=== PATIENT | male | born 2000 | race Caucasian/White ===

== ENCOUNTER 2022-08-07 17:41 | Emergency (ER) | payer OTHER ==
--- OUTSIDE RECORDS SUMMARY | 2022-08-07 17:48 | XMS REPORT | Continuity of Care Document ---
:2000 Author Organization [facility] t Address [address] [facility] [address] [place] [address] Care Team Providers Name Role Phone Wellington Ferraro MD Primary Care Physician MD GABRIELLE Attending Clinician Unavailable CK, TECH [address] Un[address], TECH 1 Attending Clinician Unavailable WELLINGTON FERRARO Attending Clinician Unavailable COVID-PFIZER VACC, CLEAR CHOWDHURY Attending Clinician UnavailYUN Lino Attending Clinician Unavailable Yun Mendosa DO Attending Clinician MALIAN FREEMAN Attending Clinician Unavailable Malina Lewis Attending Clinician Doctor Unassigned, [place] Attending Clinician Unavailable JAGRUTI BUSTOS Attending Clinician Unavailable AD MCKAY Attending Clinician Unavailable [id number] Attending Clinician Unavailable Jagruti Bustos MD Attending Clinician [phone] Azeb Mott MD Attending Clinician Unknown, Attending Attending Clinician Unavailable Payers Payer Name Policy Type Policy Number Effective Date Expiration Date Jeovanny enamorado [place] [id number] 2018 00:00:00 WEIKERT 2019 CIGGRETA WITH MIKAELA [id number] 2020 00:00:00 SEYBOLD Problems Condition Condition Condition Status Onset Resolution Last Treating Co mments Source Name Details Category Date Date Treatment Clinician Date Ingrown Ingrown Disease Active Mikaela toenail of toenail of 06-16 Se ybold left foot left foot 00:00: - 00 Externa l Allergic Allergic Disease Active Overview: Un bo rhinitis rhinitis 12-23 Formattin ity of 00:00: g of this 00 note Medical might be Branch different from the original. 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 Obesity Obesity Disease Active Univers 12-23 ity of 00:00: [place] 00 Medical Branch No known No known Disease Kelse y active active Seybold problems problems Allergies, Adverse Reactions, Alerts Allergy Allergy Status Severity Reaction(s) Onset Inactive Treating Comm ents Source Name Type Date Date Clinician Penicill Propensi Active Hives Mikaela ins ty to 3-30 Seybold adverse 00:00: - reaction 00 Externa s l Penicill Propensi Active Hives Mikaela ins ty to 3-30 Seybold adverse 00:00: reaction 00 s PENICILL Drug Active Hives Univers INS Class 3-30 ity of 00:00: [place] 00 Medical Branch Penicill Propensi Active Hives Univer s ins ty to 3-30 ity of adverse 00:00: [place] reaction 00 Medical s Branch Social History Social Habit Start Date Stop Date Quantity Comments Source History SDOH Mikaela Morales ld - Alcohol Std External Drinks History SDOH Mikaela Mirzao ld - Alcohol Binge External History [facility] Mikaela Morales ld - Alcohol Comment External Alcohol intake 2022-01-29 2022-01-29 Lifetime Mikaela Saenz bold - 00:00:00 00:00:00 non-drinker External (finding) Education 2021-06-16 2021-06-16 12 Mikaela Mirzaold - 00:00:00 00:00:00 External Tobacco use and 2018-08-03 2018-08-03 Smokeless tobacco Ke chace Seybold - exposure 00:00:00 00:00:00 non-user External History SDOH 2018-08-03 2018-08-03 1 Mikaela Morales ld - Alcohol Frequency 00:00:00 00:00:00 Externa l Sex Assigned At [birth year] Universit y of 00:00:00 00:00:00 [facility] Smoking Status Start Date Stop Date Source Never smoked tobacco Mikaela Seyb old - External Medications Ordered Filled Start Stop Current Ordering Indication Dosage Frequency Signature Comments Components Source Medication Medication Date Date Medication? Clinician (SIG) Name Name Cetirizine 2021-03- No [id number] Take by Mikaela HCl 10 MG 03-31 mouth Seybold oral Cap 15:40: 00:00 - 36 :00 Externa l Omeprazole 2021-03 Yes [id number] 20mg QD Take 1 Mikaela 20 MG oral 03-31 capsule Seybol d Delayed 00:00: (20 mg - Release 00 total) by Externa Capsule mouth l daily as needed (acid reflux) KETOCONAZOL 2021-03 Yes [id number] Apply to Mikaela E, TOPICAL, 03-31 affected Seyb old 2 % apply 00:00: area twice - externally 00 weekly for Ext darrick Shampoo up to 8 l weeks Desonide 2021-03- No [id number] Q.5D Apply 1 K elsey 0.05 % 03-31 applicatio Seybol d apply 00:00: 05:59 n - externally 00 :00 topically Exte rna Cream 2 times l daily as needed (itchiness /dryness for up to 14 days.) for up to 14 days Cetirizine Yes [id number] Take by Mikaela HCl 10 MG 06-16 mouth Seybold oral Cap 10:10: 38 Doxycycline 2021- No [id number] 100mg Take 1 Mikaela Hyclate 100 06-16 [id number] capsule Se ybold MG oral 00:00: 04:59 (100 mg Capsule 00 :00 total) by mouth in the morning and 1 capsule (100 mg total) in the evening. Do all this for 7 days. sulfamethox 2020-03- No [id number] 1{tbl} Take 1 Univers azole-trime 05-16 [id number] tablet by ity of thoprim 00:00: 05:59 mouth 2 [place] (BACTRIM 00 :00 (two) Medical DS) 800-160 times Branch mg per daily for tablet 7 days. Esomeprazol 2020- No 1{tbl} Take 1 K elsey e Magnesium 12-05 tablet by Se campo (NexIUM) 10 17:39: 00:00 mouth as MG oral 29 :00 needed Pack Cetirizine Yes [id number] Take by Mikaela HCl 10 MG 12-05 mouth Seybold oral Cap 10:39: 10 Albuterol 2020- No 2{puff} Q4H Inhale 2 Mikaela HFA (PROAIR 3-30 12-05 puffs into S eybold HFA) 108 00:00: 00:00 the lungs (90 Base) 00 :00 every 4 MCG/ACT IN hours as AERS needed for wheezing or shortness of breath mometasone 2013-0 Yes 1{spray Use 1 Uni vers (NASONEX) 7-14 } [place] in ity of 50 00:00: each [place] mcg/actuati 00 nostril Medic al on nasal daily. Branch spray mometasone 2013-0 Yes 1{spray Use 1 Uni vers (NASONEX) 7-14 } [place] in ity of 50 00:00: each [place] mcg/actuati 00 nostril Medic al on nasal daily. Branch spray mometasone 2013-0 Yes 1{spray Use 1 Uni vers (NASONEX) 7-14 } [place] in ity of 50 00:00: each [place] mcg/actuati 00 nostril Medic al on nasal daily. Branch spray mometasone 2013-0 Yes 1{spray Use 1 Uni vers (NASONEX) 7-14 } [place] in ity of 50 00:00: each [place] mcg/actuati 00 nostril Medic al on nasal daily. Branch spray mometasone 2013-0 Yes 1{spray Use 1 Uni vers (NASONEX) 7-14 } [place] in ity of 50 00:00: each [place] mcg/actuati 00 nostril Medic al on nasal daily. Branch spray Immunizations Ordered Immunization Filled Date Status Comments Sour ce Name Immunization Name Influenza Virus 2022-01-29 Completed Mikaela campo - Vaccine, age 6 months 00:00:00 Ext ernal and up COVID-19 Bivalent 2022-01-29 Completed Mikaela [place] - Booster vaccine PFIZER 00:00:00 Ex ternal 12+ Meningococcal Vaccine- 2018-08-03 Completed Ke lsey Seybold - Conjugate(Menactra) 00:00:00 Exter nal Meningococcal Vaccine- 2018-08-03 Completed Ke lsey Seybold Conjugate(Menactra) 00:00:00 Meningococcal Vaccine- 2018-08-03 Completed Ke lsey Seybold Conjugate(Menactra) 00:00:00 HPV 4 (Human 2013-10-09 Completed Mikaela Seybo ld - Papillomavirus) 00:00:00 External HPV 4 (Human 2013-10-09 Completed Mikaela Seybo ld Papillomavirus) 00:00:00 HPV 4 (Human 2013-10-09 Completed Mikaela Seybo ld Papillomavirus) 00:00:00 HPV 2013-10-09 Completed University of 00:00:00 [facility] HPV 2013-10-09 Completed University of 00:00:00 [facility] HPV 2013-10-09 Completed University of 00:00:00 [facility] HPV 2013-10-09 Completed University of 00:00:00 [facility] HPV 2013-10-09 Completed University of 00:00:00 [facility] HPV 4 (Human 2013-05-29 Completed Mikaela Seybo ld - Papillomavirus) 00:00:00 External HPV 4 (Human 2013-05-29 Completed Mikaela Seybo ld Papillomavirus) 00:00:00 HPV 4 (Human 2013-05-29 Completed Mikaela Seybo ld Papillomavirus) 00:00:00 HPV 2013-05-29 Completed University of 00:00:00 [facility] HPV 2013-05-29 Completed University of 00:00:00 [facility] HPV 2013-05-29 Completed University of 00:00:00 [facility] HPV 2013-05-29 Completed University of 00:00:00 [facility] HPV 2013-05-29 Completed University of 00:00:00 [facility] Influenza, Seasonal, 2013-03-24 Completed Jaquelin bell Seybold Injectable 00:00:00 Tdap- (Boostrix, 2013-03-24 Completed Mikaela william Adacel) 00:00:00 Meningococcal Vaccine- 2013-03-24 Completed Ke lsey Seybold Conjugate(Menveo) 00:00:00 HPV 4 (Human 2013-03-24 Completed Mikaela Morales ld - Papillomavirus) 00:00:00 External Influenza, Seasonal, 2013-03-24 Completed Jaquelin ey Seybold - Injectable 00:00:00 External Tdap- (Boostrix, 2013-03-24 Completed Mikaela bellbold - Adacel) 00:00:00 External Meningococcal Vaccine- 2013-03-24 Completed Ke lsey Seybold - Conjugate(Menveo) 00:00:00 Externa l HPV 4 (Human 2013-03-24 Completed Mikaela Morales ld Papillomavirus) 00:00:00 Influenza, Seasonal, 2013-03-24 Completed Jaquelin ey Seybold Injectable 00:00:00 Tdap- (Boostrix, 2013-03-24 Completed Mikaela bellbold Adacel) 00:00:00 Influenza Virus 2013-03-24 Completed Universit y of Vaccine (3+ yrs) 00:00:00 [facility] Meningococcal Vaccine- 2013-03-24 Completed Ke lsey Seybold Conjugate(Menveo) 00:00:00 Meningococcal 2013-03-24 Completed University of Oligosaccharide 00:00:00 [place] Med ical (groups A, C, Y and Branc h W-135) conjugate vaccine (MCV4O) HPV 4 (Human 2013-03-24 Completed Mikaela Morales ld Papillomavirus) 00:00:00 Tdap 2013-03-24 Completed University of 00:00:00 [facility] HPV 2013-03-24 Completed University of 00:00:00 [facility] Influenza Virus 2013-03-24 Completed Universit y of Vaccine (3+ yrs) 00:00:00 [facility] Meningococcal 2013-03-24 Completed University of Oligosaccharide 00:00:00 [place] Med ical (groups A, C, Y and Branc h W-135) conjugate vaccine (MCV4O) TDAP 2013-03-24 Completed University of 00:00:00 [facility] HPV 2013-03-24 Completed University of 00:00:00 [facility] Influenza Virus 2013-03-24 Completed Universit y of Vaccine (3+ yrs) 00:00:00 [facility] Meningococcal 2013-03-24 Completed University of Oligosaccharide 00:00:00 [place] Med ical (groups A, C, Y and Branc h W-135) conjugate vaccine (MCV4O) TDAP 2013-03-24 Completed University of 00:00:00 [facility] HPV 2013-03-24 Completed University of 00:00:00 [facility] Influenza Virus 2013-03-24 Completed Universit y of Vaccine (3+ yrs) 00:00:00 [facility] Meningococcal 2013-03-24 Completed University of Oligosaccharide 00:00:00 [place] [facility] ical (groups A, C, Y and Branc h W-135) conjugate vaccine (MCV4O) Tdap 2013-03-24 Completed University of 00:00:00 [facility] HPV 2013-03-24 Completed University of 00:00:00 [facility] Influenza Virus 2013-03-24 Completed Universit y of Vaccine (3+ yrs) 00:00:00 [facility] Meningococcal 2013-03-24 Completed University of Oligosaccharide 00:00:00 [place] Med ical (groups A, C, Y and Branc h W-135) conjugate vaccine (MCV4O) Tdap 2013-03-24 Completed University of 00:00:00 [facility] HPV 2013-03-24 Completed University of 00:00:00 [facility] HEPATITIS A- PEDI/ADOL 2007-10-31 Completed Alexander mas Seybverito - 00:00:00 External HEPATITIS A- PEDI/ADOL 2007-10-31 Completed Alexander kingey Seybold 00:00:00 HEPATITIS A- PEDI/ADOL 2007-10-31 Completed Alexander kingey Seybold 00:00:00 HEPATITIS A 2007-10-31 Completed University of 00:00:00 [facility] HEPATITIS A 2007-10-31 Completed University of 00:00:00 [facility] HEPATITIS A 2007-10-31 Completed University of 00:00:00 [facility] HEPATITIS A 2007-10-31 Completed University of 00:00:00 [facility] HEPATITIS A 2007-10-31 Completed University of 00:00:00 [facility] MMR- Measles, Mumps, 2006-06-08 Completed Ja[place]elin [place] Rubella 00:00:00 Polio Vaccine 2006-06-08 Completed Mikaela sellers 00:00:00 Varicella Vaccine 2006-06-08 Completed Mikaela Park 00:00:00 DTaP Unspecified 2006-06-08 Completed Mikaela william 00:00:00 IPV- Inactivated Polio 2006-06-08 Completed [place] Vaccine 00:00:00 DTaP 2006-06-08 Completed Mikaela Seybold - 00:00:00 External MMR- Measles, Mumps, 2006-06-08 Completed Jaquelin bell Seybold - Rubella 00:00:00 External Polio Vaccine 2006-06-08 Completed Mikaela Seyb old - 00:00:00 External Varicella Vaccine 2006-06-08 Completed Mikaela Seybold - 00:00:00 External DTaP Unspecified 2006-06-08 Completed Mikaela bellbold - 00:00:00 External IPV- Inactivated Polio 2006-06-08 Completed Alexander mas Seybold - Vaccine 00:00:00 External DTaP 2006-06-08 Completed Mikaela Seybold 00:00:00 MMR- Measles, Mumps, 2006-06-08 Completed Jaquelin bell Seybold Rubella 00:00:00 Polio Vaccine 2006-06-08 Completed Mikaela Seyb old 00:00:00 Varicella Vaccine 2006-06-08 Completed Mikaela Seybold 00:00:00 DTaP 2006-06-08 Completed Mikaela Seybold 00:00:00 MMR 2006-06-08 Completed University of 00:00:00 [facility] Polio (IPV/OPV) 2006-06-08 Completed Universit y of 00:00:00 [facility] Varicella 2006-06-08 Completed University of (varivax)(chicken pox) 00:00:00 [facility] DTAP 2006-06-08 Completed University of 00:00:00 [facility] MMR 2006-06-08 Completed University of 00:00:00 [facility] DTAP 2006-06-08 Completed University of 00:00:00 [facility] Polio (IPV/OPV) 2006-06-08 Completed Universit y of 00:00:00 [facility] Varicella 2006-06-08 Completed University of (varivax)(chicken pox) 00:00:00 [facility] DTAP 2006-06-08 Completed University of 00:00:00 [facility] MMR 2006-06-08 Completed University of 00:00:00 [facility] Polio (IPV/OPV) 2006-06-08 Completed Universit y of 00:00:00 [facility] Varicella 2006-06-08 Completed University of (varivax)(chicken pox) 00:00:00 [facility] MMR 2006-06-08 Completed University of 00:00:00 [facility] Polio (IPV/OPV) 2006-06-08 Completed Universit y of 00:00:00 [facility] Varicella 2006-06-08 Completed University of (varivax)(chicken pox) 00:00:00 [facility] DTAP 2006-06-08 Completed University of 00:00:00 [facility] MMR 2006-06-08 Completed University of 00:00:00 [facility] Polio (IPV/OPV) 2006-06-08 Completed Universit y of 00:00:00 [facility] Varicella 2006-06-08 Completed University of (varivax)(chicken pox) 00:00:00 [facility] DTAP 2006-06-08 Completed University of 00:00:00 [facility] Pneumococcal Vaccine, 2004-11-13 Completed Devon saenz Seybverito Conjugate 7 00:00:00 DTaP Unspecified 2004-11-13 Completed Mikaela bellbowali 00:00:00 Hib (HbOC) 2004-11-13 Completed Mikaela Hernandezybverito 00:00:00 HEPATITIS A- PEDI/ADOL 2004-11-13 Completed Alexander mas Seybold 00:00:00 DTaP 2004-11-13 Completed Mikaela Hernandezybold - 00:00:00 External Pneumococcal Vaccine, 2004-11-13 Completed [place] - Conjugate 7 00:00:00 External DTaP Unspecified 2004-11-13 Completed Mikaela bellbold - 00:00:00 External Hib (HbOC) 2004-11-13 Completed Mikaela Hernandezybold - 00:00:00 External HEPATITIS A- PEDI/ADOL 2004-11-13 Completed Alexander kingey Seybold - 00:00:00 External DTaP 2004-11-13 Completed Mikaela Seybverito 00:00:00 Pneumococcal Vaccine, 2004-11-13 Completed Devon saenz Seybverito Conjugate 7 00:00:00 DTaP 2004-11-13 Completed Mikaela Seybold 00:00:00 Pneumococcal 7 2004-11-13 Completed Cedric of Conjugate, PCV7 00:00:00 [facility] ical (Prevnar7) Branch DTAP 2004-11-13 Completed University of 00:00:00 [facility] DTAP 2004-11-13 Completed University of 00:00:00 [facility] Pneumococcal 7 2004-11-13 Completed University of Conjugate, PCV7 00:00:00 [place] [facility] (Prevnar7) Branch DTAP 2004-11-13 Completed University of 00:00:00 [facility] Pneumococcal 7 2004-11-13 Completed University of Conjugate, PCV7 00:00:00 [place] [facility] ical (Prevnar7) Branch Pneumococcal 7 2004-11-13 Completed University of Conjugate, PCV7 00:00:00 [place] [facility] ical (Prevnar7) Branch DTAP 2004-11-13 Completed University of 00:00:00 [facility] Pneumococcal 7 2004-11-13 Completed University of Conjugate, PCV7 00:00:00 [place] [facility] ical (Prevnar7) Branch DTAP 2004-11-13 Completed University of 00:00:00 [facility] Tetanus Toxoid/HIB 2004-11-10 Completed Mikaela Park - 00:00:00 External Tetanus Toxoid/HIB 2004-11-10 Completed Mikaela [place] 00:00:00 Tetanus Toxoid/HIB 2004-11-10 Completed Mikaela [place] 00:00:00 HIB 4 Dose Schedule 2004-11-10 Completed Unive rsity of 00:00:00 [facility] HIB 4 Dose Schedule 2004-11-10 Completed Unive rsity of 00:00:00 [facility] HIB 4 Dose Schedule 2004-11-10 Completed Unive rsity of 00:00:00 [facility] HIB 4 Dose Schedule 2004-11-10 Completed Unive rsity of 00:00:00 [facility] HIB 4 Dose Schedule 2004-11-10 Completed Unive rsity of 00:00:00 [facility] HEPATITIS A- PEDI/ADOL 2004-11-03 Completed [place] - 00:00:00 External HEPATITIS A- PEDI/ADOL 2004-11-03 Completed [place] 00:00:00 HEPATITIS A- PEDI/ADOL 2004-11-03 Completed [place] 00:00:00 HEPATITIS A 2004-11-03 Completed University of 00:00:00 [facility] HEPATITIS A 2004-11-03 Completed University of 00:00:00 [facility] HEPATITIS A 2004-11-03 Completed University of 00:00:00 [facility] HEPATITIS A 2004-11-03 Completed University of 00:00:00 [facility] HEPATITIS A 2004-11-03 Completed University of 00:00:00 [facility] DTaP Unspecified 2003-06-28 Completed Mikaela S eybold 00:00:00 HIB- Haemophilus 2003-06-28 Completed Mikaela S eybold Influenzae Type B 00:00:00 DTaP Unspecified 2003-06-28 Completed Mikaela S eybold - 00:00:00 External HIB- Haemophilus 2003-06-28 Completed Mikaela S eybold - Influenzae Type B 00:00:00 Externa l MMR- Measles, Mumps, 2002-12-26 Completed Jaquelin ey Seybold Rubella 00:00:00 Pneumococcal Vaccine, 2002-12-26 Completed Devon sey Seybold Conjugate 7 00:00:00 Varicella Vaccine 2002-12-26 Completed Mikaela Seybold 00:00:00 MMR- Measles, Mumps, 2002-12-26 Completed Jaquelin ey Seybold - Rubella 00:00:00 External Pneumococcal Vaccine, 2002-12-26 Completed Devon sey Seybold - Conjugate 7 00:00:00 External Varicella Vaccine 2002-12-26 Completed Mikaela Seybold - 00:00:00 External MMR- Measles, Mumps, 2002-12-26 Completed Jaquelin ey Seybold Rubella 00:00:00 Pneumococcal Vaccine, 2002-12-26 Completed Devon sey Seybold Conjugate 7 00:00:00 Varicella Vaccine 2002-12-26 Completed Mikaela Seybold 00:00:00 MMR 2002-12-26 Completed University of 00:00:00 [facility] Pneumococcal 7 2002-12-26 Completed University of Conjugate, PCV7 00:00:00 [facility] ical (Prevnar7) Branch Varicella 2002-12-26 Completed University of (varivax)(chicken pox) 00:00:00 [facility] MMR 2002-12-26 Completed University of 00:00:00 [facility] Pneumococcal 7 2002-12-26 Completed University of Conjugate, PCV7 00:00:00 [facility] ical (Prevnar7) Branch Varicella 2002-12-26 Completed University of (varivax)(chicken pox) 00:00:00 [facility] MMR 2002-12-26 Completed University of 00:00:00 [facility] Pneumococcal 7 2002-12-26 Completed University of Conjugate, PCV7 00:00:00 [facility] ical (Prevnar7) Branch Varicella 2002-12-26 Completed University of (varivax)(chicken pox) 00:00:00 [facility] MMR 2002-12-26 Completed University of 00:00:00 [facility] Pneumococcal 7 2002-12-26 Completed University of Conjugate, PCV7 00:00:00 [facility] ical (Prevnar7) Branch Varicella 2002-12-26 Completed University of (varivax)(chicken pox) 00:00:00 [facility] MMR 2002-12-26 Completed University of 00:00:00 [facility] Pneumococcal 7 2002-12-26 Completed University of Conjugate, PCV7 00:00:00 [facility] ical (Prevnar7) Branch Varicella 2002-12-26 Completed University of (varivax)(chicken pox) 00:00:00 [facility] Pneumococcal Vaccine, 2002-10-17 Completed [place] Conjugate 7 00:00:00 Pneumococcal Vaccine, 2002-10-17 Completed [place] - Conjugate 7 00:00:00 External Pneumococcal Vaccine, 2002-10-17 Completed [place] Conjugate 7 00:00:00 Pneumococcal 7 2002-10-17 Completed University of Conjugate, PCV7 00:00:00 [place] [facility] (Prevnar7) Branch Pneumococcal 7 2002-10-17 Completed University of Conjugate, PCV7 00:00:00 [place] [facility] ical (Prevnar7) Branch Pneumococcal 7 2002-10-17 Completed University of Conjugate, PCV7 00:00:00 [place] [facility] ical (Prevnar7) Branch Pneumococcal 7 2002-10-17 Completed University of Conjugate, PCV7 00:00:00 [place] [facility] ical (Prevnar7) Branch Pneumococcal 7 2002-10-17 Completed University of Conjugate, PCV7 00:00:00 [place] [facility] (Prevnar7) Branch Polio Vaccine 2002-06-27 Completed Mikaela sellers 00:00:00 DTaP Unspecified 2002-06-27 Completed Mikaela william 00:00:00 Hib (HbOC) 2002-06-27 Completed Mikaela Park 00:00:00 IPV- Inactivated Polio 2002-06-27 Completed [place] Vaccine 00:00:00 DTaP 2002-06-27 Completed Mikaela [place] - 00:00:00 External Hepatitis B, 2002-06-27 Completed Mikaela keyes - Adolescent Or 00:00:00 External Pediatric Tetanus Toxoid/HIB 2002-06-27 Completed Mikaela Mirzaold - 00:00:00 External Polio Vaccine 2002-06-27 Completed Mikaela Mirza old - 00:00:00 External DTaP Unspecified 2002-06-27 Completed Mikaela william - 00:00:00 External Hib (HbOC) 2002-06-27 Completed Mikaela [place] - 00:00:00 External IPV- Inactivated Polio 2002-06-27 Completed Alexander mas Seybold - Vaccine 00:00:00 External DTaP 2002-06-27 Completed Mikaela Seybold 00:00:00 Hepatitis B, 2002-06-27 Completed Mikaela Morales ld Adolescent Or 00:00:00 Pediatric Tetanus Toxoid/HIB 2002-06-27 Completed Mikaela Hernandezybverito 00:00:00 Polio Vaccine 2002-06-27 Completed Mikaela sellers 00:00:00 DTaP 2002-06-27 Completed Mikaela Hernandezybverito 00:00:00 Hepatitis B, 2002-06-27 Completed Mikaela keyes Adolescent Or 00:00:00 Pediatric Tetanus Toxoid/HIB 2002-06-27 Completed Mikaela Seybverito 00:00:00 HIB 4 Dose Schedule 2002-06-27 Completed Unive rsity of 00:00:00 [facility] Hep B, Adol or Pedi 2002-06-27 Completed Unive rsity of Dosage 00:00:00 [facility] Polio (IPV/OPV) 2002-06-27 Completed Universit y of 00:00:00 [facility] DTAP 2002-06-27 Completed University of 00:00:00 [facility] DTAP 2002-06-27 Completed [facility] 00:00:00 [facility] HIB 4 Dose Schedule 2002-06-27 Completed Unive rsity of 00:00:00 [facility] Hep B, Adol or Pedi 2002-06-27 Completed Unive rsity of Dosage 00:00:00 [facility] Polio (IPV/OPV) 2002-06-27 Completed Universit y of 00:00:00 [facility] DTAP 2002-06-27 Completed University of 00:00:00 [facility] HIB 4 Dose Schedule 2002-06-27 Completed Unive rsity of 00:00:00 [facility] HIB 4 Dose Schedule 2002-06-27 Completed Unive rsity of 00:00:00 [facility] Hep B, Adol or Pedi 2002-06-27 Completed Unive rsity of Dosage 00:00:00 [facility] Polio (IPV/OPV) 2002-06-27 Completed Universit y of 00:00:00 [facility] Hep B, Adol or Pedi 2002-06-27 Completed Unive rsity of Dosage 00:00:00 [facility] Polio (IPV/OPV) 2002-06-27 Completed Universit y of 00:00:00 [facility] DTAP 2002-06-27 Completed University of 00:00:00 [facility] HIB 4 Dose Schedule 2002-06-27 Completed Unive rsity of 00:00:00 [facility] Hep B, Adol or Pedi 2002-06-27 Completed Unive rsity of Dosage 00:00:00 [facility] Polio (IPV/OPV) 2002-06-27 Completed Universit y of 00:00:00 [facility] DTAP 2002-06-27 Completed [facility] of 00:00:00 [facility] Polio Vaccine 2002-04-20 Completed Mikaela sellers 00:00:00 DTaP Unspecified 2002-04-20 Completed Mikaela william 00:00:00 IPV- Inactivated Polio 2002-04-20 Completed [place] Vaccine 00:00:00 DTaP 2002-04-20 Completed [place]a [place] - 00:00:00 External Tetanus Toxoid/HIB 2002-04-20 Completed [place] - 00:00:00 External Polio Vaccine 2002-04-20 Completed Mikaela sellers - 00:00:00 External DTaP Unspecified 2002-04-20 Completed Mikaela william - 00:00:00 External IPV- Inactivated Polio 2002-04-20 Completed [place] - Vaccine 00:00:00 External DTaP 2002-04-20 Completed [place] 00:00:00 Tetanus Toxoid/HIB 2002-04-20 Completed [place] 00:00:00 Polio Vaccine 2002-04-20 Completed Mikaela Seyb old 00:00:00 DTaP 2002-04-20 Completed [place] 00:00:00 Tetanus Toxoid/HIB 2002-04-20 Completed [place] 00:00:00 Polio (IPV/OPV) 2002-04-20 Completed Universit [facility] 00:00:00 [facility] DTAP 2002-04-20 Completed [facility] of 00:00:00 [facility] DTAP 2002-04-20 Completed [facility] of 00:00:00 [facility] HIB 4 Dose Schedule 2002-04-20 Completed Unive rsity of 00:00:00 [facility] Polio (IPV/OPV) 2002-04-20 Completed Universit y of 00:00:00 [facility] HIB 4 Dose Schedule 2002-04-20 Completed Unive rsity of 00:00:00 [facility] DTAP 2002-04-20 Completed University of 00:00:00 [facility] HIB 4 Dose Schedule 2002-04-20 Completed Unive rsity of 00:00:00 [facility] Polio (IPV/OPV) 2002-04-20 Completed Universit y of 00:00:00 [facility] Polio (IPV/OPV) 2002-04-20 Completed Universit y of 00:00:00 [facility] DTAP 2002-04-20 Completed University of 00:00:00 [facility] HIB 4 Dose Schedule 2002-04-20 Completed Unive rsity of 00:00:00 [facility] Polio (IPV/OPV) 2002-04-20 Completed Universit y of 00:00:00 [facility] DTAP 2002-04-20 Completed [facility] of 00:00:00 [facility] HIB 4 Dose Schedule 2002-04-20 Completed Unive rsity of 00:00:00 [facility] Polio Vaccine 2002-02-20 Completed Mikaela sellers 00:00:00 DTaP Unspecified 2002-02-20 Completed Mikaela william 00:00:00 IPV- Inactivated Polio 2002-02-20 Completed [place] Vaccine 00:00:00 DTaP 2002-02-20 Completed [place] - 00:00:00 External Tetanus Toxoid/HIB 2002-02-20 Completed [place] - 00:00:00 External Polio Vaccine 2002-02-20 Completed Mikaela Seyb old - 00:00:00 External DTaP Unspecified 2002-02-20 Completed Mikaela bellbold - 00:00:00 External IPV- Inactivated Polio 2002-02-20 Completed [place] mas Seybold - Vaccine 00:00:00 External DTaP 2002-02-20 Completed Mikaela Hernandezybold 00:00:00 Tetanus Toxoid/HIB 2002-02-20 Completed Mikaela Hernandezybold 00:00:00 Polio Vaccine 2002-02-20 Completed Mikaela Mirza old 00:00:00 DTaP 2002-02-20 Completed Mikaela Hernandezybverito 00:00:00 Tetanus Toxoid/HIB 2002-02-20 Completed Mikaela Hernandezybold 00:00:00 DTAP 2002-02-20 Completed [facility] of 00:00:00 [facility] Polio (IPV/OPV) 2002-02-20 Completed Universit y of 00:00:00 [facility] DTAP 2002-02-20 Completed [facility] of 00:00:00 [facility] HIB 4 Dose Schedule 2002-02-20 Completed Unive rsity of 00:00:00 [facility] Polio (IPV/OPV) 2002-02-20 Completed Universit y of 00:00:00 [facility] HIB 4 Dose Schedule 2002-02-20 Completed Unive rsity of 00:00:00 [facility] DTAP 2002-02-20 Completed [facility] of 00:00:00 [facility] HIB 4 Dose Schedule 2002-02-20 Completed Unive rsity of 00:00:00 [facility] Polio (IPV/OPV) 2002-02-20 Completed Universit y of 00:00:00 [facility] Polio (IPV/OPV) 2002-02-20 Completed Universit y of 00:00:00 [facility] DTAP 2002-02-20 Completed [facility] of 00:00:00 [facility] HIB 4 Dose Schedule 2002-02-20 Completed Unive rsity of 00:00:00 [facility] Polio (IPV/OPV) 2002-02-20 Completed [facility]it y of 00:00:00 [facility] DTAP 2002-02-20 Completed [facility] of 00:00:00 [facility] HIB 4 Dose Schedule 2002-02-20 Completed Unive rsity of 00:00:00 [facility] Hepatitis B, 2002-01-24 Completed Mikaela Morales ld - Adolescent Or 00:00:00 External Pediatric Hepatitis B, 2002-01-24 Completed Mikaela Morales ld Adolescent Or 00:00:00 Pediatric Hepatitis B, 2002-01-24 Completed Mikaela Mirzao ld Adolescent Or 00:00:00 Pediatric Hep B, Adol or Pedi 2002-01-24 Completed Unive rsity of Dosage 00:00:00 [facility] Hep B, Adol or Pedi 2002-01-24 Completed Unive rsity of Dosage 00:00:00 [facility] Hep B, Adol or Pedi 2002-01-24 Completed Unive rsity of Dosage 00:00:00 [facility] Hep B, Adol or Pedi 2002-01-24 Completed Unive rsity of Dosage 00:00:00 [facility] Hep B, Adol or Pedi 2002-01-24 Completed Unive rsity of Dosage 00:00:00 [facility] Hib (HbOC) 2002-01-20 Completed [place] 00:00:00 Hib (HbOC) 2002-01-20 Completed [place] - 00:00:00 External Hepatitis B, 2001 Completed Mikaela Morales ld - Adolescent Or 00:00:00 External Pediatric Hepatitis B, 2001 Completed Mikaela Morales ld Adolescent Or 00:00:00 Pediatric Hepatitis B, 2001 Completed Mikaela Mirzao ld Adolescent Or 00:00:00 Pediatric Hep B, Adol or Pedi 2001 Completed Unive rsity of Dosage 00:00:00 [facility] Hep B, Adol or Pedi 2001 Completed Unive rsity of Dosage 00:00:00 [facility] Hep B, Adol or Pedi 2001 Completed Unive rsity of Dosage 00:00:00 [facility] Hep B, Adol or Pedi 2001 Completed Unive rsity of Dosage 00:00:00 [facility] Hep B, Adol or Pedi 2001 Completed Unive rsity of Dosage 00:00:00 [facility] Vital Signs Vital Name Observation Time Observation Value Comments Source Systolic blood 2022-01-29 20:39:00 119 mm[Hg] [place] - pressure External Diastolic blood 2022-01-29 20:39:00 73 mm[Hg] Kelse y Seybold - pressure External Heart rate 2022-01-29 20:39:00 108 /min Mikaela S eybold - External Body temperature 2022-01-29 20:39:00 36.94 Bethany Jaquelin ey Seybold - External Respiratory rate 2022-01-29 20:39:00 18 /min Jaquelin ey Seybold - External Body height 2022-01-29 20:39:00 167.6 cm Mikaela S eybold - External Body weight 2022-01-29 20:39:00 131.997 kg Mikaela S eybold - External BMI 2022-01-29 20:39:00 46.97 kg/m2 Mikaela S eybold - External Oxygen saturation in 2022-01-29 20:39:00 95 /min Mikaela Seybold - Arterial blood by External Pulse oximetry Diastolic blood 2021-06-16 15:07:00 76 mm[Hg] Kelse y Seybold pressure Heart rate 2021-06-16 15:07:00 91 /min Mikaela S eybold Body temperature 2021-06-16 15:07:00 36.83 Bethany Jaquelin ey Seybold Respiratory rate 2021-06-16 15:07:00 16 /min Jaquelin ey Seybold Body height 2021-06-16 15:07:00 167.6 cm Mikaela S eybold Body weight 2021-06-16 15:07:00 135.988 kg Mikaela Up eybold BMI 2021-06-16 15:07:00 48.39 kg/m2 Mikaela S eybold Oxygen saturation in 2021-06-16 15:07:00 98 /min Mikaela Seybold Arterial blood by Pulse oximetry Systolic blood 2021-06-16 15:07:00 125 mm[Hg] Mikaela Seybold pressure Systolic blood 2021-03-15 20:21:00 127 mm[Hg] Univer sity of pressure [facility] Diastolic blood 2021-03-15 20:21:00 84 mm[Hg] Unive rsity of pressure [facility] Heart rate 2021-03-15 20:21:00 65 /min [facility] Body temperature 2021-03-15 20:21:00 36.67 Bethany Univ ersity of [facility] Respiratory rate 2021-03-15 20:21:00 16 /min Univ ersity of [facility] Body height 2021-03-15 20:21:00 167.6 cm Universi ty of [facility] Body weight 2021-03-15 20:21:00 133.221 kg Universi ty [facility] BMI 2021-03-15 20:21:00 47.40 kg/m2 Universi ty [facility] Body mass index 2021-03-15 20:21:00 99.89 % Unive rsity of (BMI) [Percentile] [facility] Per age and sex Branch Oxygen saturation in 2021-03-15 20:21:00 100 /min [facility] Arterial blood by [facility] Pulse oximetry Branch Systolic blood 2020-12-05 15:35:00 124 mm[Hg] Mikaela Seybold pressure Diastolic blood 2020-12-05 15:35:00 60 mm[Hg] Kelse y Seybold pressure Heart rate 2020-12-05 15:35:00 101 /min Mikaela bellwali Body temperature 2020-12-05 15:35:00 37.56 Bethany Jaquelin bell Seybverito Respiratory rate 2020-12-05 15:35:00 16 /min [place] Body height 2020-12-05 15:35:00 167.6 cm Mikaela bellbowali Body weight 2020-12-05 15:35:00 131.997 kg Mikaela bellbo BMI 2020-12-05 15:35:00 46.97 kg/m2 Mikaela bellbo Body mass index 2020-12-05 15:35:00 99.89 % [facility] [place] (BMI) [Percentile] Per age and sex Systolic blood 2018-11-06 15:15:00 116 mm[Hg] Kerri linday of pressure [facility] Diastolic blood 2018-11-06 15:15:00 78 mm[Hg] Unive rsity of pressure [facility] Heart rate 2018-11-06 15:15:00 55 /min Universi [facility] Body temperature 2018-11-06 15:15:00 36.72 Bethany Univ ersity of [facility] Respiratory rate 2018-11-06 15:15:00 16 /min [facility] Body height 2018-11-06 15:15:00 162.6 cm [facility] Body weight 2018-11-06 15:15:00 94.711 kg [facility] BMI 2018-11-06 15:15:00 35.84 kg/m2 [facility] Oxygen saturation in 2018-11-06 15:15:00 98 /min [facility] Arterial blood by [facility] Pulse oximetry Branch Procedures Procedure Date / Time Performed Performing Clinician [facility] e ASSIGNMENT OF BENEFITS 2021-03-15 20:15:00 Doctor Unassigned, No [facility] LS RAPID STREP 2020-12-05 16:09:59 Jagruti Busots ld ASSAY-LAB TEST Somogyi NOTICE OF PRIVACY 2018-11-06 16:34:24 Doctor Unassigned, No [facility] XR WRIST 3+ VW RIGHT 2018-11-06 15:38:29 Azeb Mott [facility] Encounters Start End Encounter Admission Attending Care Care Encounter Source Date/Time Date/Time Type Type Clinicians Facility Department ID 2022-04-10 2022-04-10 Outpatient ROHAN DOVE [id number] Mikaela 00:00:00 00:00:00 MD Laura BURDICK 2022-02-17 2022-02-17 Outpatient EMY LOPEZ [id number] Mikaela 13:00:00 13:00:00 Seybol d 2022-02-11 2022-02-11 Outpatient EMY COOPER [id number] Mikaela 11:30:00 11:30:00 Seybol d 2022-02-06 2022-02-06 Outpatient ROHAN DOVE [id number] Mikaela 00:00:00 00:00:00 MD David BURDICKyblindsey angel 2022-01-29 2022-01-29 Outpatient WELLINGTON FERRARO [id number] Mikaela 16:00:00 16:00:00 Seybol d 2022-01-29 2022-01-29 Outpatient COVID-PFIZE MIKAELA DOVE [id number] Mikaela 15:45:00 15:45:00 R VACC, Seybol d CLEAR 2022-01-29 2022-01-29 Outpatient COVID-PFIZE MIKAELA DOVE [id number] Mikaela 14:15:00 14:15:00 R VACC, Seybol d CLEAR 2021-06-26 2021-06-26 Outpatient PREMIKAELA CRANE [id number] Mikaela 00:00:00 00:00:00 YUN Seybol d 2021-06-17 2021-06-17 Outpatient PREMIKAELA CRANE [id number] Mikaela 00:00:00 00:00:00 YUN Seybol d 2021-06-17 2021-06-17 Outpatient PREZAMIKAELA Up [id number] Mikaela 00:00:00 00:00:00 YUN Seybol d 2021-06-16 2021-06-16 Office Norberto Mendosa [id number] Mikaela 10:00:00 10:30:00 Visit Yun [place] [id number] alber [id number] 2021-06-16 2021-06-16 Outpatient MIKAELA DOVE [id number] Mikaela 00:00:00 00:00:00 Seybol d 2021-03-15 2021-03-15 Outpatient R LYDIA [facility] [id number] Univers 14:20:00 15:26:40 MALINA ity [facility] 2021-03-15 2021-03-15 [facility] [id number] Univers 14:20:00 14:40:00 Care [facility] [id number] it y of MEDICINE BOW [id number] Arnol as MICHELLE?BLEA [phone] [address] MEDICAL OFFICE BUILDING 2021-03-15 2021-03-15 Orders Doctor BRENNAN [id number] Univers 00:00:00 00:00:00 Only Unassigned, ALYCIA [id number] ity of [place] [facility] [id number] Arnol as [phone] [facility] 00[address] Branch 2021-02-26 2021-02-26 Outpatient MIKAELA BUSTOS [id number] Mikaela 15:00:00 15:00:00 JAGRUTI Seybol d 2020-12-27 2020-12-27 Outpatient MIKAELA MCKAY [id number] Mikaela 14:30:00 14:30:00 AD Seybol d 2020-12-23 2020-12-23 Outpatient MIKAELA MCKAY [id number] Mikaela 00:00:00 00:00:00 AD Seybol d 2020-12-13 2020-12-13 Outpatient MIKAELA BUSTOS [id number] Mikaela 15:30:00 15:30:00 JAGRUTI Seybol d 2020-12-13 2020-12-13 Outpatient MIKAELA MCKAY [id number] Mikaela 10:30:00 10:30:00 AD Seybol d 2020-12-12 2020-12-12 Outpatient MIKAELA BUSTOS [id number] Mikaela 00:00:00 00:00:00 JAGRUTI Seybol d 2020-12-06 2020-12-06 Outpatient MIKAELA BUSTOS [id number] Mikaela 00:00:00 00:00:00 JAGRUTI Seybol d 2020-12-05 2020-12-05 Outpatient LAB90 MIKAELA DOVE [id number] Mikaela 11:45:00 11:45:00 Seybol d 2020-12-05 2020-12-05 Office Norberto Bustos [id number] Mikaela 10:21:43 10:51:43 Visit Jagruti Milton [id number] Se alber Jernigan [id number] 2020-11-21 2020-11-21 Outpatient MIKAELA MCKAY [id number] Mikaela 10:45:00 10:45:00 AD Seybol d 2020-11-19 2020-11-19 Outpatient ROHAN DOVE [id number] Mikaela 00:00:00 00:00:00 MD HEAVENLY Seybol d 2020-11-12 2020-11-12 Outpatient MIKAELA MCKAY MIKAELA [id number] Mikaela 10:15:00 10:15:00 AD Hernandezybol d 2020-11-08 2020-11-08 Outpatient MIKAELA MCKAY MIKAELA [id number] Mikaela 00:00:00 00:00:00 AD Hernandezybol d 2020-10-29 2020-10-29 Outpatient MIKAELA MCKAY MIKAELA [id number] Mikaela 10:00:00 10:00:00 AD Hernandezybol d 2020-10-24 2020-10-24 Outpatient MIKAELA MCKAY MIKAELA [id number] Mikaela 11:15:00 11:15:00 AD Mirzaol d 2018-11-14 2018-11-14 [place] [facility] [id number] [facility] 00:00:00 00:00:00 Azeb Izquierdo SPECIALTY [id number] it[id number] [id number] [facility] 2018-11-06 2018-11-06 [facility] [id number] Univers 10:20:00 23:59:00 Encounter Azeb Izquierdo SPECIALTY [id number] [id number] [id number] Ms alberto PRATHER [address] [facility] 2018-11-06 2018-11-06 Urgent Azeb Mott [facility] 1.2.8 [id number] Univers 10:08:32 10:23:32 Care Unknown, Attending SPECIALTY [id number]. 10 [id number] [id number] [facility] [address] [facility] Results Test Description Test Time Test Comments Results Result Comments Source RAPID STREP ASSAY-LAB TEST 2020-12-05 16:33:26 Test Item Value Reference Range Interpretation Comme nts STREP GP A AG, IA (test code = Negative Negative Infection due to Strep A cannot 95976-5) be ruled-out be cause the antigen present in the sample may be below th e detection limit of the te st. Specimen has been sent for c onfirmation of negative. Lab Interpretation (test code = Normal [id number]) Mikaela ParkXR WRIST 3+ VW [id number] 16:31:53 No acute bony abnormality. Enrike Cooper MD., have reviewed this study and agree with theabove report.* * * * * * * * ORIGINAL REPORT * * * * * * * *EXAM: XR WRIST 3+ VW RIGHT HISTORY: fall COMPARISON: None FINDINGS: Radiographs of the right wrist demonstrate no acute fracture ordislocation.The joint spaces are maintained. No soft tissue abnormality isseen. [facility], Radiant Results Inft User - 11/06/2018 11:33 AM CDT* * * * * * * * ORIGINAL REPORT * * * * * * * *EXAM: XR WRIST 3+ VW RIGHTHISTORY: fall COMPARISON: NoneFINDINGS:Radiographs of the right wrist demonstrate no acute fracture ordislocation. The joint spaces are maintained. No soft tissue abnormality isseen.IMPRESSIONNo acute bonyabnormality.Enrike Cooper MD., have reviewed this study and agree with theabove report. [facility]
--- NOTE | 2022-08-07 17:58 | EDPHYS ---
Physician Documentation [facility] Name: Andres Garcia Age: 21 yrs Sex: Male : 2000 Arrival Date: 08/07/2022 Time: 17:41 Bed IW2 Private MD: ED Physician Rajesh Valentino HPI: 08/07 18:05 This 21 yrs old Male presents to ER via Ambulatory with complaints of Facial Droop. snw 18:05 The patient presents to the emergency department with weakness to left face. Onset: The snw symptoms/episode began/occurred suddenly, 1 day(s) ago, and became persistent. Associated signs and symptoms: The patient has no apparent associated signs or symptoms. Severity of symptoms: At their worst the symptoms were moderate. Current symptoms: Currently, the patient is not experiencing any symptoms. The patient has not experienced similar symptoms in the past. The patient has not recently seen a physician. recent stomach virus. Historical: - Allergies: 17:53 PENICILLINS; hb - PMHx: 17:54 None; hb - PSHx: 17:54 None; hb - Immunization history:: Adult Immunizations up to date. - Social history:: Smoking status: Patient denies any tobacco usage or history of. ROS: 18:04 Constitutional: Negative for fever, chills, and weight loss, Eyes: Negative for injury, snw pain, redness, and discharge, ENT: Negative for injury, pain, and discharge, Neck: Negative for injury, pain, and swelling, Cardiovascular: Negative for chest pain, palpitations, and edema, Respiratory: Negative for shortness of breath, cough, wheezing, and pleuritic chest pain, Abdomen/GI: Negative for abdominal pain, nausea, vomiting, diarrhea, and constipation, Back: Negative for injury and pain, : Negative for injury, bleeding, discharge, and swelling, MS/Extremity: Negative for injury and deformity, Skin: Negative for injury, rash, and discoloration, Psych: Negative for depression, anxiety, suicide ideation, homicidal ideation, and hallucinations. 18:04 Neuro: Positive for left facial weakness. Exam: 18:02 Constitutional: This is a well developed, well nourished patient who is awake, alert, snw and in no acute distress. Eyes: Pupils equal round and reactive to light, extra-ocular motions intact. Lids and lashes normal. Conjunctiva and sclera are non-icteric and not injected. Cornea within normal limits. Periorbital areas with no swelling, redness, or edema. ENT: Nares patent. No nasal discharge, no septal abnormalities noted. Tympanic membranes are normal and external auditory canals are clear. Oropharynx with no redness, swelling, or masses, exudates, or evidence of obstruction, uvula midline. Mucous membranes moist. Neck: Trachea midline, no thyromegaly or masses palpated, and no cervical lymphadenopathy. Supple, full range of motion without nuchal rigidity, or vertebral point tenderness. No Meningismus. Chest/axilla: Normal chest wall appearance and motion. Nontender with no deformity. No lesions are appreciated. Cardiovascular: Regular rate and rhythm with a normal S1 and S2. No gallops, murmurs, or rubs. Normal PMI, no JVD. No pulse deficits. Respiratory: Lungs have equal breath sounds bilaterally, clear to auscultation and percussion. No rales, rhonchi or wheezes noted. No increased work of breathing, no retractions or nasal flaring. Abdomen/GI: Soft, non-tender, with normal bowel sounds. No distension or tympany. No guarding or rebound. No evidence of tenderness throughout. Back: No spinal tenderness. No costovertebral tenderness. Full range of motion. Skin: Warm, dry with normal turgor. Normal color with no rashes, no lesions, and no evidence of cellulitis. MS/ Extremity: Pulses equal, no cyanosis. Neurovascular intact. Full, normal range of motion. Neuro: Awake and alert, GCS 15, oriented to person, place, time, and situation. left facial nerve paralysis. Motor strength 5/5 in all extremities. Sensory grossly intact. Cerebellar exam normal. Normal gait. Psych: Awake, alert, with orientation to person, place and time. Behavior, mood, and affect are within normal limits. 18:02 Head/face: Noted is left facial nerve paralysis, unable to wrinkle forehead, blink is less often on the left. Vital Signs: 17:50 BP 139 / 80; Pulse 100; Resp 16; Temp 98.1; Pulse Ox 100% on R/A; Weight 136.08 kg; hb Height 5 ft. 6 in. ; Pain 0/10; 17:50 Body Mass Index 48.42 (136.08 kg, 167.64 cm) hb 17:50 Pain Scale: Adult hb MDM: 17:53 Patient medically screened. snw 18:02 Data reviewed: vital signs, nurses notes. I considered the following discharge snw prescriptions or medication management in the emergency department Medications were administered in the Emergency Department. See MAR. Historians other than the Patient: Parent: Mom. Counseling: I had a detailed discussion with the patient and/or guardian regarding: the historical points, exam findings, and any diagnostic results supporting the discharge/admit diagnosis, the presence of at least one elevated blood pressure reading (>120/80) during this emergency department visit, the need for outpatient follow up, to return to the emergency department if symptoms worsen or persist or if there are any questions or concerns that arise at home. Special discussion: I have referred the patient to see his PCP for further evaluation of high blood pressure. Based on the history and exam findings, there is no indication for further emergent testing or inpatient evaluation. I discussed with the patient/guardian the need to see the primary care provider for further evaluation of the symptoms. Administered Medications: 18:18 Drug: Acyclovir PO 800 mg Route: PO; hb 18:18 Follow up: Response: No adverse reaction hb 18:18 Drug: Famotidine PO 20 mg Route: PO; hb 18:18 Follow up: Response: No adverse reaction hb 18:18 Drug: predniSONE PO 20 mg Route: PO; hb 18:18 Follow up: Response: No adverse reaction hb 18:18 Drug: Promethazine PO 25 mg Route: PO; hb 18:18 Follow up: Response: No adverse reaction hb Disposition: 19:39 Co-signature as Attending Physician, Rajesh Valentino MD I reviewed the patient's care rt provided by the Advanced Practice Provider and agree with the diagnosis and treatment plan. Disposition Summary: 08/07/22 17:58 Discharge Ordered Location: Home snw Condition: Stable snw Diagnosis - Norwood's palsy snw Followup: snw - With: Private Physician - When: 2 - 3 days - Reason: Recheck today's complaints, Continuance of care, Re-evaluation by your physician Discharge Instructions: - Norwood's Palsy, Adult snw - Rehydration, Adult snw - Discharge Summary Sheet jl7 Forms: - Medication Reconciliation Form snw - Thank You Letter snw - Antibiotic Education snw - Prescription Opioid Use snw - Work release form jl7 - Family Work Release jl7 Prescriptions: - Valtrex 1 gram Oral tablet - take 1 tablet by ORAL route 3 times per day for 7 days; 21 tablet; Refills: 0, snw Product Selection Permitted - Prednisone 20 mg Oral Tablet - take 2 tablets by ORAL route once daily for 5 days; 10 tablet; Refills: 0, snw Product Selection Permitted - Pepcid 20 mg Oral Tablet - take 1 tablet by ORAL route once daily; 20 tablet; Refills: 0, Product snw Selection Permitted Signatures: Chela Mark FNP-C DECAL APPLIER-Csnw Katie Turner, JULIO RN Rajesh Valentino MD MD rt
--- NOTE | 2022-08-07 17:58 | ER ---
Nurse's Notes [facility] Name: Andres Garcia Age: 21 yrs Sex: Male : 2000 Arrival Date: 08/07/2022 Time: 17:41 Bed IW2 Private MD: Diagnosis: Norwood's palsy Presentation: 08/07 17:50 Chief complaint: Left sided facial droop that started yesterday at 1400. VAN negative. hb Coronavirus screen: At this time, the client does not indicate any symptoms associated with coronavirus-19. Ebola Screen: No symptoms or risks identified at this time. Initial Sepsis Screen: Does the patient meet any 2 criteria? No. Patient's initial sepsis screen is negative. Does the patient have a suspected source of infection? No. Patient's initial sepsis screen is negative. Risk Assessment: Do you want to hurt yourself or someone else? Patient reports no desire to harm self or others. Onset of symptoms was August 06, 2022 at 14:00. 17:50 Method Of Arrival: Ambulatory hb 17:50 Acuity: ARVIND 3 hb Triage Assessment: 17:54 General: Appears in no apparent distress. Behavior is calm, cooperative. Pain: Denies hb pain. Neuro: Level of Consciousness is awake, alert, obeys commands, Oriented to person, place, time, situation. Cardiovascular: Patient's skin is warm and dry. Respiratory: Respiratory effort is even, unlabored, Respiratory pattern is regular, symmetrical. Stroke Activation: Symptom onset > 6 hours Physician: Stroke Attending; Name: ; Notified At: ; Arrived At: Physician: Chief Stroke Resident; Name: ; Notified At: ; Arrived At: Physician: Stroke Resident; Name: ; Notified At: ; Arrived At: Physician: ED Attending; Name: ; Notified At: ; Arrived At: Physician: ED Resident; Name: ; Notified At: ; Arrived At: Historical: - Allergies: 17:53 PENICILLINS; hb - PMHx: 17:54 None; hb - PSHx: 17:54 None; hb - Immunization history:: Adult Immunizations up to date. - Social history:: Smoking status: Patient denies any tobacco usage or history of. Screenin:55 [facility] ED Fall Risk Assessment (Adult) Score/Fall Risk Level 0 - 2 = Low Risk hb Oriented to surroundings, Maintained a safe environment. Abuse screen: Denies threats or abuse. Denies injuries from another. Nutritional screening: No deficits noted. Tuberculosis screening: No symptoms or risk factors identified. Assessment: 18:19 General: See triage assessment . hb Vital Signs: 17:50 BP 139 / 80; Pulse 100; Resp 16; Temp 98.1; Pulse Ox 100% on R/A; Weight 136.08 kg; hb Height 5 ft. 6 in. ; Pain 0/10; 17:50 Body Mass Index 48.42 (136.08 kg, 167.64 cm) hb 17:50 Pain Scale: Adult hb ED Course: 17:48 Patient arrived in ED. mr 17:52 Chela [facility]C [facility] snw 17:52 Rajesh Valentino MD is Attending Physician. snw 17:53 Triage completed. hb 17:54 Arm band placed on. hb 17:55 Patient has correct armband on for positive identification. hb 18:19 No provider procedures requiring assistance completed. Patient did not have IV access hb during this emergency room visit. Administered Medications: 18:18 Drug: Acyclovir PO 800 mg Route: PO; hb 18:18 Follow up: Response: No adverse reaction hb 18:18 Drug: Famotidine PO 20 mg Route: PO; hb 18:18 Follow up: Response: No adverse reaction hb 18:18 Drug: predniSONE PO 20 mg Route: PO; hb 18:18 Follow up: Response: No adverse reaction hb 18:18 Drug: Promethazine PO 25 mg Route: PO; hb 18:18 Follow up: Response: No adverse reaction hb Medication: 17:55 VIS not applicable for this client. hb Outcome: 17:58 Discharge ordered by . snw 18:19 Discharged to home ambulatory, with family. hb 18:19 Condition: stable 18:19 Discharge instructions given to patient, family, Instructed on discharge instructions, follow up and referral plans. medication usage, Demonstrated understanding of instructions, follow-up care, medications, Prescriptions given X 3. 18:19 Patient left the ED. hb Signatures: Chela Mark FNP-C [employer] MANAGER-Csn Maggie GillisKatie, RN RN hb
[2022-08-07] MEDS ORDERED: predniSONE 20 MG TAB ONE (18:07)
[2022-08-07] MEDS ORDERED: FAMOTIDINE 20 MG TAB ONE (18:07)
[2022-08-07] MEDS ORDERED: PROMETHAZINE 25 MG TABLET ONE (18:07)
[2022-08-07] MEDS ORDERED: ACYCLOVIR 400 MG TABLET ONE (18:11)
[2022-08-07 18:53] VITALS: BP 139/80; TEMP 98.1; O2SAT 100
== END 2022-08-07 18:19 | disposition home or self-care (01) ==
LOC: ER 17:41
DX: G51.0 Bell's palsy (principal); Z88.0 Allergy status to penicillin
CPT/HCPCS: 99283; Q0169; J7512